=== PATIENT | female | born 1995 | race Caucasian/White ===

== ENCOUNTER 2017-05-25 01:25 | Emergency (ER) | payer OTHER ==
[2017-05-25] MEDS ORDERED: NS 1,000 ML IV ONE (01:31)
[2017-05-25] MEDS ORDERED: ONDANSETRON 4 MG/2 ML VIAL IVP ONE ×2 (01:31→02:07)
--- NOTE | 2017-05-25 01:31 | EDPHY ---
H & P Time Seen by Provider: 05/25/17 01:28 HPI/ROS: Chief Complaint: Alcohol intoxication, vomiting HPI: 21-year-old female who was out with her cousin, became intoxicated. Patient passed out after vomiting. Is unable to ambulate on their own. Patient brought in by EMS for further evaluation. No obvious signs of trauma per EMS. Remainder of history is unobtainable secondary to the patient's intoxication. ROS: 10 point Review of Systems is negative except as noted in the HPI. PMH: None Medications: None Allergies: Unknown Social History: Positive for alcohol Family History: non-contributory Physical Exam: Gen: Somnolent, responds to painful stimuli, maintaining airway, smells of alcohol and emesis HEENT: Atraumatic Nose: no epistaxis or deformity Eyes: PERRLA, EOMI Mouth: Moist mucosa Neck: Supple, no step-offs or deformity Chest: Atraumatic, lungs clear to auscultation Heart: S1, S2 normal, no murmur Abd: Soft, non-tender, no guarding Back: Atraumatic Ext: no edema, atraumatic Skin: no rash Neuro: Sensation grossly intact, Strength 5/5 in bilateral upper and lower extremities Constitutional: Initial Vital Signs Temperature (C) 36.6 C 05/25/17 01:31 Heart Rate 56 L 05/25/17 01:31 Respiratory Rate 16 05/25/17 01:31 Blood Pressure 102/63 05/25/17 01:31 O2 Sat (%) 97 05/25/17 01:31 O2 Delivery Mode Room Air Allergies/Adverse Reactions: No Known Allergies Allergy (Unverified 05/25/17 02:08) Home Medications: Medication Instructions Recorded Unobtainable 05/25/17 Medical Decision Making ED Course/Re-evaluation: Patient is now awake and appropriate. Ambulating unassisted to the bathroom. No current complaints. Medically cleared for the discharge with her sober cousin. - Data Points Medications Given: Discontinued Medications Sodium Chloride (Ns) 1,000 mls @ 0 mls/hr IV ONCE ONE; Wide Open PRN Reason: Protocol Stop: 05/25/17 01:32 Last Admin: 05/25/17 01:37 Dose: 1,000 mls Ondansetron HCl (Zofran) 4 mg IVP EDNOW ONE Stop: 05/25/17 01:32 Last Admin: 05/25/17 01:37 Dose: 4 mg Ondansetron HCl (Zofran) 4 mg IVP EDNOW ONE Stop: 05/25/17 02:08 Last Admin: 05/25/17 02:08 Dose: 4 mg Departure - Departure Disposition: Home, Routine, Self-Care Clinical Impression: Alcoholic intoxication Condition: Good Instructions: Alcohol Intoxication (ED) Referrals: NONE *PRIMARY CARE P,. [Primary Care Provider] - As per Instructions Em Guerrero MD [[facility] [place] Primary Care Provider] - As per Instructions
[2017-05-25 01:33] VITALS: RESP 16; TEMP 97.9
[2017-05-25] MEDS ORDERED: ONDANSETRON 4 MG/2 ML VIAL ONE (01:36)
[2017-05-25 03:42] VITALS: BP 106/61; PULSE 75; O2SAT 98
== END 2017-05-25 03:39 | disposition home or self-care (01) ==
DX: F10.129 Alcohol abuse with intoxication, unspecified (principal); E86.9 Volume depletion, unspecified
CPT/HCPCS: 96374; J2405